=== PATIENT | female | born 1990 | race Caucasian/White ===

== ENCOUNTER 2020-02-03 15:42 | Emergency (ER) | payer MEDICAID ==
[~2020-02-03] VITALS: Ht 165.1 cm; Wt 59.0 kg
[2020-02-03 15:44] VITALS: BP 123/80; Ht 165.1 cm; Wt 59.0 kg
== END 2020-02-03 18:00 | disposition home or self-care (01) ==
LOC: ED 15:42
DX: J02.9 Acute pharyngitis, unspecified (principal); Z20.828 Contact with and (suspected) exposure to other viral communicable diseases
CPT/HCPCS: Q0092; U0003-CS

== ENCOUNTER 2020-02-10 11:11 | Emergency (ER) | payer MEDICAID ==
[~2020-02-10] VITALS: Ht 165.1 cm; Wt 62.1 kg
[2020-02-10 11:18] VITALS: Ht 165.1 cm; Wt 62.1 kg
[2020-02-10 13:02] VITALS: BP 103/58
== END 2020-02-10 13:02 | disposition home or self-care (01) ==
LOC: ED 11:11
DX: R09.1 Pleurisy (principal)
CPT/HCPCS: Q0092

== ENCOUNTER 2020-06-01 14:24 | Emergency (ER) | payer MEDICAID ==
[~2020-06-01] VITALS: Ht 162.6 cm; Wt 64.9 kg
[2020-06-01 14:34] VITALS: BP 121/82; Ht 162.6 cm; Wt 64.9 kg
== END 2020-06-01 16:56 | disposition home or self-care (01) ==
LOC: ED 14:24
DX: K64.9 Unspecified hemorrhoids (principal)